=== PATIENT | male | born 1970 | race Caucasian/White ===

== ENCOUNTER 2018-05-26 12:55 | Emergency (ER) | payer OTHER ==
[~2018-05-26] VITALS: Ht 182.9 cm; Wt 86.2 kg
[2018-05-26 13:03] VITALS: BP_SYST 146
[2018-05-26] MEDS ORDERED: chlorproMAZINE HCL 50 MG/ 2 ML AMP IVP ONE (13:30)
[2018-05-26] MEDS ORDERED: NACL 0.9% 1,000 ML IV ONE (13:30)
[2018-05-26] MEDS ORDERED: DIPHENHYDRAMINE INJ 50 MG/ML VIAL IVP ONE (13:30)
[2018-05-26 13:41] LABS: BASOPHILS # (AUTO) 0.1 K/uL (0.0-0.2); BASOPHILS % (AUTO) 2.1 % (0.0-2.0); EOSINOPHILS # (AUTO) 0.5 K/uL (0.0-0.4); HEMATOCRIT 46.7 % (36-54); HEMOGLOBIN 16.1 g/dL (14.0-18.0); LYMPHOCYTES # (AUTO) 1.6 K/uL (1.0-5.5); LYMPHOCYTES % (AUTO) 26.6 % (20.5-51.5); MEAN CORPUSCULAR HEMOGLOBIN 35 pg (27-31); MEAN CORPUSCULAR HGB CONC 35 % (32-36); MEAN CORPUSCULAR VOLUME 100 fL (79.0-98.0); MONOCYTES # (AUTO) 0.3 K/uL (0.0-1.0); MONOCYTES % (AUTO) 4.5 % (1.7-9.3); NEUTROPHILS # (AUTO) 3.7 K/uL (1.8-7.7); NEUTROPHILS % (AUTO) 58.8 % (40.0-70.0); PLATELET COUNT (AUTO) 256 K/uL (130-430); RED BLOOD CELL COUNT(AUTO) 4.67 MIL/uL (4.2-6.2); RED CELL DISTRIBUTION WIDTH 11.6 % (9.0-15.0); WHITE BLOOD COUNT (AUTO) 6.2 K/uL (4.8-10.8)
[2018-05-26 13:47] LABS: CALCIUM 8.3 mg/dL (8.4-11.0); CREATININE 0.93 mg/dL (0.55-1.30); POTASSIUM 3.7 mmol/L (3.5-5.1)
[2018-05-26 13:50] LABS: BARBITURATE, URINE NEGATIVE (NEG <=200); COCAINE, URINE POSITIVE (NEG <=150); METHAMPHETAMINES SCREEN,URINE NEGATIVE (NEG <=500); URINE AMPHETAMINE NEGATIVE (NEG <=500); URINE METHADONE NEGATIVE (NEG <=200)
[2018-05-26 13:51] LABS: BENZODIAZEPINE, URINE NEGATIVE (NEG <=150); CANNABINOID, URINE NEGATIVE (NEG <=50); OPIATE, URINE NEGATIVE (NEG <=100); PHENCYCLIDINE SCREEN,URINE NEGATIVE (NEG <=25); UR TRICYCLIC ANTIDEPRESSANTS NEGATIVE (NEG <=300); URINE OXYCODONE SCREEN NEGATIVE (NEG <=100); URINE PROPOXYPHENE SCREEN NEGATIVE (NEG <=300)
[2018-05-26 13:52] LABS: ALBUMIN 3.6 g/dL (3.4-4.8); TOTAL BILIRUBIN 0.7 mg/dL (0.0-1.0)
[2018-05-26 14:39] VITALS: BP_SYST 139
== END 2018-05-26 14:39 | disposition home or self-care (01) ==
LOC: SED 12:55
DX: R51 Headache (principal); K75.9 Inflammatory liver disease, unspecified; F19.10 Other psychoactive substance abuse, uncomplicated; F14.10 Cocaine abuse, uncomplicated; F41.9 Anxiety disorder, unspecified; I10 Essential (primary) hypertension
CPT/HCPCS: 36415; 70450; 80053; 80307; 84484; 85025; 93005; 96361; 96374; 96375; 99285; J1200; J3230; J7030

== ENCOUNTER 2022-01-02 19:14 | Emergency (ER) | payer OTHER ==
[~2022-01-02] VITALS: Ht 167.6 cm; Wt 69.9 kg
[2022-01-02 19:16] VITALS: BP_SYST 139
--- NOTE | 2022-01-02 19:32 | NUR ---
ER DR CRAFT at bedside examining patient.
--- NOTE | 2022-01-02 19:35 | NUR ---
PATIENT A/OX4. PATIENT IS SITTING IN CHAIR, RESTING CALMLY, NO C/O PAIN OR S/S OF DISTRESS. PATIENT CHEST RISE AND FALL SYMMETRICAL. PATIENT RESTING COMFORTABLY, [employer] OFFICER WITH PATIENT.
[2022-01-02 19:51] VITALS: BP_SYST 121
--- NOTE | 2022-01-02 19:52 | NUR ---
PATIENT VERBALIZED UNDERSTANDING OF DISCHARGE EDUCATION, NO FURTHER QUESTIONS. PATIENT LEFT WITH CHP OFFICER, ALL BELONGINGS, AND ALL DISCHARGE PEPERWORK. PATIENT WALKS WITH STRONG GAIT.
== END 2022-01-02 19:52 ==
LOC: SED 19:14
DX: Z04.3 Encounter for examination and observation following other accident (principal); I10 Essential (primary) hypertension; F41.9 Anxiety disorder, unspecified
CPT/HCPCS: 99283